=== PATIENT | female | born 1980 | race African-American/Black ===

== ENCOUNTER → 2018-04-29 | Outpatient (CLI) | payer OTHER ==
--- NOTE | 2018-04-29 08:48 | PCVCIMAG ---
EXAM: BILATERAL RENAL ULTRASOUND AND BILATERAL RENAL DUPLEX INDICATION: Hypertension FINDINGS: Right kidney: Length measures 11.8 cm. No hydronephrosis or extensive renal scarring. Right renal duplex: Adequate technical quality. No sonographic evidence of renal artery stenosis. The aortic to renal artery ratio is 0.9. The renal vein is patent. Left kidney: Length measures 11.5 cm. No hydronephrosis or extensive renal scarring. Left renal duplex: Adequate technical quality. No sonographic evidence of renal artery stenosis. The aortic to renal artery ratio is 0.7. The renal vein is patent. Bladder: No obvious abnormalities. IMPRESSION: No significant renal artery stenosis. No hydronephrosis bilaterally. LOC:[id number]
--- NOTE | 2018-05-02 10:34 | PCVCIMAG ---
APPROVED REPORT Study performed: 04/29/2018 12:42:14 EXAM: Comprehensive 2D, Doppler, and color-flow Echocardiogram Patient Location: Echo lab Room #: 2Status: routine BSA: 1.99 HR: 62 bpmBP: 144/100 mmHg Rhythm: NSR Other Information Study Quality: Good Risk Factors: Cardiac Risk Factors: HTN Indications Hypertension/HDD 2D Dimensions IVSd: 9.93 (7-11mm)LVOT Diam: 23.89 (18-24mm) LVDd: 46.77 mm PWd: 6.86 (7-11mm)Ascending Ao: 38.65 (22-36mm) LVDs: 25.98 (25-40mm) Left Atrium: 44.91 (27-40mm) Aortic Root: 34.28 mm LV Single Plane 4CH: 55.79 % LV Single Plane 2CH: 63.91 % Biplane EF: 60.6 % Volumes Left Atrial Volume (Systole) Single Plane 4CH: 64.95 mLSingle Plane 2CH: 102.06 mL Biplane LA Volume: 85.00 mLLA ESV Index: 42.00 mL/m2 Aortic Valve AoV Peak Dwight.: 1.21 m/s AO Peak Gr.: 5.87 mmHgLVOT Max P.76 mmHg LVOT Max V: 0.97 m/s CAMACHO Vmax: 3.58 cm2 Mitral Valve E/A Ratio: 1.5 MV Decel. Time: 207.44 ms MV E Max Dwight.: 0.72 m/s MV A Dwight.: 0.48 m/s IVRT: 83.04 ms TDI E/Lateral E': 6.00E/Medial E': 8.00 Medial E' Dwight.: 0.09 m/s Lateral E' Dwight.: 0.12 m/s Pulmonary Valve PV Peak Dwight.: 0.79 m/sPV Peak Gr.: 2.48 mmHg Pulmonary Vein P Vein S: 0.56 m/sP Vein A: 0.24 m/s P Vein D: 0.38 m/sP Vein A Dur.: 145.3 msec P Vein S/D Ratio: 1.47 Tricuspid Valve TR Peak Dwight.: 2.41 m/s TR Peak Gr.: 23.15 mmHg TV Vmax: 0.72 m/sPA Pressure: 30.00 mmHg Left Ventricle The left ventricle is normal size. There is normal LV segmental wall motion. There is normal left ventricular wall thickness. Left ventricular systolic function is normal. The left ventricular ejection fraction is within the normal range. LVEF is 60-65%. The left ventricular diastolic function is normal. Right Ventricle The right ventricle is normal size. The right ventricular systolic function is normal. Atria The left atrium size is normal. The right atrium size is normal. Aortic Valve The aortic valve is normal in structure. No aortic regurgitation is present. There is no aortic valvular stenosis. Mitral Valve The mitral valve is normal in structure. There is no mitral valve regurgitation noted. No evidence of mitral valve stenosis. Tricuspid Valve The tricuspid valve is normal in structure. Mild tricuspid regurgitation with a PA pressure of 30 mmHg. Borderline pulmonary hypertension. Pulmonic Valve The pulmonary valve is normal in structure. There is no pulmonic valvular regurgitation. Great Vessels The aortic root is normal in size. Ascending aorta is mildly dilated. IVC is normal in size and collapses >50% with inspiration. Pericardium There is no pericardial effusion. There is no pleural effusion. <Conclusion> The left ventricle is normal size. There is normal left ventricular wall thickness. LVEF is 60-65%. The right ventricle is normal size. The left atrium size is normal. The aortic valve is normal in structure. The aortic valve is normal in structure. There is no mitral valve regurgitation noted. Mild tricuspid regurgitation with a PA pressure of 30 mmHg. Borderline pulmonary hypertension. The aortic root is normal in size. There is no pericardial effusion.
== END ==
LOC: EDBD → PCVCIMAG 12:00
PROVIDERS: ATTEND Internal Medicine Cardiovascular Disease
DX: I07.1 Rheumatic tricuspid insufficiency (principal); I10 Essential (primary) hypertension
CPT/HCPCS: 76770; 93306; 93975